=== PATIENT | female | born 1995 | race Hispanic/Latino ===

== ENCOUNTER 2021-02-04 10:18 | Outpatient (CLI) | payer OTHER ==
[2021-02-04 11:24] LABS: Hemoglobin 11.2 g/dL (12.0-15.5); Mean Corpuscular HGB CONC 31.9 g/dL (32.0-36.0); Mean Corpuscular Hemoglobin 27.7 pg (27.0-33.0); Mean Corpuscular Volume 86.7 fl (81.6-98.3); Mean Platelet Volume 10.9 fl (7.4-10.4); Platelet Count 338 10x3/uL (150-450); RBC Distribution Width 13.8 % (11.5-14.5); Red Blood Cell (RBC) Count 4.05 10x6/uL (3.90-5.03); White Blood Cell (WBC) Count 11.1 10x3/uL (3.5-10.5)
[2021-02-04 11:46] LABS: SARS-CoV-2 NAA Rapid Test Not Detected (NotDetected)
[2021-02-04] MEDS ORDERED: Gabapentin 300 MG CAP ONE (13:25)
[2021-02-04] MEDS ORDERED: CeleCOXIB 100 MG CAP ONE (13:25)
[2021-02-04] MEDS ORDERED: Famotidine 40 MG/4 ML VIAL ONE (13:25)
[2021-02-04] MEDS ORDERED: Lidocaine 1% PF 5 ML VIAL ONE ×2 (13:25→15:50)
[2021-02-04] MEDS ORDERED: Dexamethasone 4 mg/ml Vial ONE (15:50)
[2021-02-04] MEDS ORDERED: Ondansetron PF 4 MG/2 ML Vial ONE ×2 (15:50→19:45)
[2021-02-04] MEDS ORDERED: Rocuronium Bromide 10 MG/ML (10ML VIAL) ONE (15:50)
[2021-02-04] MEDS ORDERED: Glycopyrrolate 0.2 MG/ML 5 ML SYRINGE ONE (17:06)
[2021-02-04] MEDS ORDERED: Levofloxacin 500 mg/D5W 100 ml Premix Bag ONE (17:17)
[2021-02-04] MEDS ORDERED: Bupivacaine PF 0.5% 30 ML VIAL ONE (17:17)
[2021-02-04] MEDS ORDERED: EPINEPHrine 1 MG/10 ML Abboject SYRINGE ONE (17:17)
[2021-02-04] MEDS ORDERED: Fentanyl 100 MCG/2 ML VIAL ONE (18:27)
== END 2021-02-04 10:19 | disposition home or self-care (01) ==
LOC: CSHLAB 10:18
PROVIDERS: ATTEND Student in an Organized Health Care Education/Training Program
DX: D27.0 Benign neoplasm of right ovary (principal); O00.102 Left tubal pregnancy without intrauterine pregnancy
CPT/HCPCS: 84702; 85027; 86850; 86900; 86901; 88305; 88307; J0171; J1100; J1956; J2405; J3010; S0020; U0002

== ENCOUNTER → 2021-02-04 | Day surgery (SDC) | payer OTHER ==
[~2021-02-04] MED LIST: Bupivacaine PF 0.5% 30 ML VIAL ONE; CeleCOXIB 100 MG CAP ONE; Famotidine/PF 20 mg/2ml Vial ONE; Fentanyl 100 MCG/2 ML VIAL ONE; Gabapentin 300 MG CAP ONE; Levofloxacin 500 mg/D5W 100 ml Premix Bag ONE; Lidocaine 1% MPF 2 ML VIAL ONE; Ondansetron PF 4 MG/2 ML Vial ONE; PROPOFOL 20 ML ONE; SUGAMMADEX SODIUM 500 MG/5 ML VIAL ONE
== END ==
LOC: CSHSDC 17:15
PROVIDERS: ATTEND Student in an Organized Health Care Education/Training Program
PROC: 0UB04ZZ Excision of Right Ovary, Percutaneous Endoscopic Approach (ICD-10-PCS; principal; 2021-02-04)
PROC: 10T24ZZ Resection of Products of Conception, Ectopic, Percutaneous Endoscopic Approach (ICD-10-PCS; principal; 2021-02-04)
DX: D27.0 Benign neoplasm of right ovary (principal); O00.90 Unspecified ectopic pregnancy without intrauterine pregnancy; Z88.8 Allergy status to other drugs, medicaments and biological substances; Z91.010 Allergy to peanuts; Z20.822 Contact with and (suspected) exposure to COVID-19
CPT/HCPCS: J0690; J1956; J2405; J2704; J3010; J3490; S0020; S0028

== ENCOUNTER 2022-08-04 23:57 | Day surgery (SDC) | payer OTHER ==
[2022-08-05 03:24] VITALS: BMI 31.9
[2022-08-05 06:45] LABS: Fetal Membranes Rupture No Membranes Rupture (No Rupture)
== END 2022-08-05 02:15 | disposition home or self-care (01) ==
LOC: CSHLD/OP 23:57
PROVIDERS: ATTEND Student in an Organized Health Care Education/Training Program
DX: O47.1 False labor at or after 37 completed weeks of gestation (principal); Z3A.39 39 weeks gestation of pregnancy; Z79.899 Other long term (current) drug therapy; Z88.1 Allergy status to other antibiotic agents; Z98.890 Other specified postprocedural states
CPT/HCPCS: 84112; 99282

== ENCOUNTER 2022-08-08 21:31 | Inpatient (IN) | payer OTHER ==
[~2022-08-08 21:31] MED LIST changes: +Bupivacaine 0.25% HCL 30 ML VIAL ONE; -Bupivacaine PF 0.5% 30 ML VIAL ONE; -CeleCOXIB 100 MG CAP ONE; -Famotidine/PF 20 mg/2ml Vial ONE; -Fentanyl 100 MCG/2 ML VIAL ONE; -Gabapentin 300 MG CAP ONE; -Levofloxacin 500 mg/D5W 100 ml Premix Bag ONE; -Lidocaine 1% MPF 2 ML VIAL ONE; -Ondansetron PF 4 MG/2 ML Vial ONE; -PROPOFOL 20 ML ONE; -SUGAMMADEX SODIUM 500 MG/5 ML VIAL ONE
[2022-08-08] MEDS ORDERED: hydrALAZINE 20 MG/ML VIAL SLOW IVP PRN (21:46)
[2022-08-08 22:14] VITALS: BMI 36.1
[2022-08-09] MEDS ORDERED: Butorphanol Tartrate 1 MG/ML VIAL SLOW IVP SCH (00:30)
[2022-08-09] MEDS ORDERED: Misoprostol 200 MCG TAB PR PRN (02:40)
[2022-08-09] MEDS ORDERED: Ondansetron PF 4 MG/2 ML Vial IVP PRN ×3 (02:40→12:03)
[2022-08-09] MEDS ORDERED: Methylergonovine 0.2 MG/ML VIAL IM PRN (02:40)
[2022-08-09] MEDS ORDERED: Carboprost 250 MCG/ML AMP IM PRN (02:40)
[2022-08-09] MEDS ORDERED: Promethazine HCl 25 MG/ML VIAL IM PRN ×2 (02:40→04:21)
[2022-08-09] MEDS ORDERED: Butorphanol Tartrate 1 MG/ML VIAL SLOW IVP PRN (02:40)
[2022-08-09] MEDS ORDERED: Acetaminophen 500 MG TAB PO PRN (02:40)
[2022-08-09] MEDS ORDERED: Lidocaine 1% (PF) 30 ML VIAL SC PRN (02:40)
[2022-08-09] MEDS ORDERED: NS w/ Oxytocin 30 units 500 ML IV SCH ×2 (02:45)
[2022-08-09] MEDS ORDERED: Lactated Ringer's 1,000 ML IV SCH (02:45)
[2022-08-09 03:21] LABS: Hemoglobin 11.1 g/dL (12.0-15.5); Mean Corpuscular HGB CONC 32.4 g/dL (32.0-36.0); Mean Corpuscular Hemoglobin 25.1 pg (27.0-33.0); Mean Corpuscular Volume 77.4 fl (81.6-98.3); Mean Platelet Volume 12.5 fl (7.4-10.4); Platelet Count 273 10x3/uL (150-450); RBC Distribution Width 14.7 % (11.5-14.5); Red Blood Cell (RBC) Count 4.43 10x6/uL (3.90-5.03); White Blood Cell (WBC) Count 12.6 10x3/uL (3.5-10.5)
[2022-08-09] MEDS ORDERED: Fentanyl 2 mcg/Bup 0.1% Cadd 100 ML ONE (03:35)
[2022-08-09 03:51] LABS: HBSAg Index 0.16 S/CO (0-0.99); Hep B Surf Ag Non-Reactive S/CO (NonReactive)
[2022-08-09 03:53] LABS: Syphilis Antibody Nonreactive (Nonreactive); Syphilis Antibody Index 0.04 S/CO (<1.00 Non-Reactive)
[2022-08-09] MEDS ORDERED: diphenhydrAMINE 50 MG/ML VIAL IVP PRN (04:21)
[2022-08-09] MEDS ORDERED: Acetaminophen 325 MG TAB PO PRN (04:21)
[2022-08-09] MEDS ORDERED: Moisturizing Cream (Eucerin) 113 GM JAR TOP PRN (04:21)
[2022-08-09] MEDS ORDERED: ePHEDrine Sulfate 50 MG/10 ML VIAL SLOW IVP PRN (04:21)
[2022-08-09] MEDS ORDERED: Naloxone HCl 0.4 mg/ml Vial IVP PRN ×2 (04:21)
[2022-08-09] MEDS ORDERED: Lactated Ringer's 500 ML IV PRN (04:21)
[2022-08-09] MEDS ORDERED: Communication Order-Pharmacy FS SCH (04:30)
[2022-08-09] MEDS ORDERED: Fentanyl 2 mcg/Bupivacaine 0.1% Cassette 100 ML EPIDURAL SCH (04:30)
[2022-08-09] MEDS ORDERED: Dexmedetomidine 200 MCG/2 ML VIAL ONE (08:22)
[2022-08-09] MEDS ORDERED: Boostrix 0.5 ML (Tdap) VIAL (>/=7 yrs of age) IM ONE (12:03)
[2022-08-09] MEDS ORDERED: HYDROcodone/Acetaminophen 5/325 mg Tablet PO PRN ×2 (12:03)
[2022-08-09] MEDS ORDERED: diphenhydrAMINE 25 MG CAP PO PRN (12:03)
[2022-08-09] MEDS ORDERED: Lanolin Ointment 7 GM TUBE TOP PRN (12:03)
[2022-08-09] MEDS ORDERED: hydrALAZINE 20 MG/ML VIAL SLOW IVP PRN (12:03)
[2022-08-09] MEDS ORDERED: Bisacodyl 10 MG SUPP PR PRN (12:03)
[2022-08-09] MEDS ORDERED: Milk Of Magnesia 30 ML UDCUP PO PRN (12:03)
[2022-08-09] MEDS ORDERED: Preparation H Ointment 28 GM TUBE PR PRN (12:03)
[2022-08-09] MEDS ORDERED: Benzocaine-Menthol 82.5 ML CAN TOP PRN (12:03)
[2022-08-09] MEDS: Ibuprofen 800 MG TAB PO SCH ×2 (14:15→21:34)
[2022-08-09] MEDS: Ferrous Sulfate 325 MG TAB PO SCH (19:06)
[2022-08-09] MEDS: Docusate 100 MG CAP PO SCH (21:34)
[2022-08-10] MEDS: Ibuprofen 800 MG TAB PO SCH ×2 (05:41→14:23)
[2022-08-10] MEDS: Ferrous Sulfate 325 MG TAB PO SCH (07:27)
[2022-08-10] MEDS: Docusate 100 MG CAP PO SCH (08:15)
[2022-08-10] MEDS ORDERED: Prenatal Vitamin 1 TAB PO SCH (09:00)
[2022-08-10 12:59] VITALS: BP 116/70; TEMP 97.1
[2022-08-10] MEDS ORDERED: Measles/Mumps/Rubella 10 MCG/0.5 ML VIAL SC ONE (14:15)
== END 2022-08-10 15:35 | disposition home or self-care (01) | DRG 807 ==
LOC: CSHLD/OP 21:31 → CSHLD 08-09 00:50 → UNDOADMIN 08-09 00:50 → CSHLD 08-09 02:40 → CSHPP 08-09 14:43
PROVIDERS: ADMIT Student in an Organized Health Care Education/Training Program; ATTEND Student in an Organized Health Care Education/Training Program
PROC: 10E0XZZ Delivery of Products of Conception, External Approach (ICD-10-PCS; principal; 2022-08-09)
DX: O99.42 Diseases of the circulatory system complicating childbirth (principal); Z37.0 Single live birth; Z3A.39 39 weeks gestation of pregnancy; Z79.899 Other long term (current) drug therapy; Z91.010 Allergy to peanuts; Z88.8 Allergy status to other drugs, medicaments and biological substances; I49.1 Atrial premature depolarization; O69.1XX0 Labor and delivery complicated by cord around neck, with compression, not applicable or unspecified; O77.0 Labor and delivery complicated by meconium in amniotic fluid
CPT/HCPCS: 85027; 86780; 86850; 86900; 86901; 87340; 90707; 93005; 93010; J0595; J2405; S0020

== ENCOUNTER 2023-08-24 06:23 | Emergency (ER) | payer OTHER ==
[2023-08-24 07:15] LABS: Bilirubin Neg (Negative); Blood, Urine 25 (Negative); Glucose, Urine (Dipstick) Normal (Negative); Ketone, Urine Negative (Negative); Leukocyte 100 (Negative); Nitrite Negative (Negative); Protein, Urine (Dipstick) 15 mg/dl (Neg-Trace); Specific Gravity, Urine 1.025 (1.005-1.030); Urobilinogen Normal mg/dL (Less than 2)
[2023-08-24] MEDS ORDERED: Mag-Al Plus 1200 MG/1200 MG/120 MG/30 ML UDCUP ONE (07:20)
[2023-08-24] MEDS ORDERED: Ondansetron ODT 4 MG TAB ONE (07:20)
[2023-08-24 07:25] LABS: Clarity Clear (Clear)
[2023-08-24 07:26] LABS: Pregnancy Test - Urine (BHCG) Negative (Negative); Pregu Control Background? CLEAR/WHITE (CLR/WHITE); Pregu Control Bar Appear? YES (CONTROL BAR); Specific Gravity 1.025 (1.002-1.036)
[2023-08-24 07:27] LABS: Bacteria/HPF 1+ HPF (None Seen); CAUTI Indications for Culture Pelvic or flank pain; RBC/HPF 0-3 HPF (0-3); Squamous Epithelial 0-3 HPF (0-3)
[2023-08-24 07:28] LABS: Urine Culture Reflex No No
[2023-08-24 07:34] LABS: #Basophils 0.1 10x3/uL (0.0-0.2); #Eosinphils 0.2 10x3/uL (0.0-0.5); #Neutrophils 8.8 10x3/uL (1.5-8.4); %Basophils 0.4 % (0.0-2.0); %Eosinophils 1.3 % (0.0-6.0); %Lymphocytes 23.3 % (18.0-47.0); %Monocytes 7.5 % (0.0-10.0); %Neutrophils 67.2 % (40.0-75.0); Hematocrit 36.5 % (34.9-44.5); Hemoglobin 11.7 g/dL (12.0-15.5); Mean Corpuscular HGB CONC 32.1 g/dL (32.0-36.0); Mean Corpuscular Hemoglobin 26.4 pg (27.0-33.0); Mean Corpuscular Volume 82.4 fl (81.6-98.3); Platelet Count 363 10x3/uL (150-450); RBC Distribution Width 14.4 % (11.5-14.5); Red Blood Cell (RBC) Count 4.43 10x6/uL (3.90-5.03); White Blood Cell (WBC) Count 13.2 10x3/uL (3.5-10.5)
[2023-08-24 07:58] LABS: ALT (SGPT) 9 U/L (8-55); AST (SGOT) 10 U/L (5-34); Alkaline Phosphatase 77 U/L (40-110); Anion Gap 14 mmol/L (10-20); BUN (Urea Nitrogen) 14 mg/dL (7.0-18.7); Bilirubin, Total 0.3 mg/dL (0.2-1.2); Calc. Creatinine Clearance 0 mL/min (70-130); Calcium 9.4 mg/dL (7.8-10.44); Carbon Dioxide 22 mmol/L (22-29); Chloride 107 mmol/L (98-107); Estimated GFR 108; Globulin 3.5 g/dL (2.4-3.5); Glucose 113 mg/dL (70-105); Lipase 13 U/L (8-78); Potassium 4.1 mmol/L (3.5-5.1); Protein, Total 7.5 g/dL (6.0-8.3); Sodium 139 mmol/L (136-145)
== END 2023-08-24 09:04 | disposition home or self-care (01) ==
LOC: CSHERS 06:23
DX: N39.0 Urinary tract infection, site not specified (principal)
CPT/HCPCS: 80053; 81001; 81025; 83690; 85025; 99284; Q0162